=== PATIENT | male | born 1950 | race Caucasian/White ===

== ENCOUNTER 2018-05-05 21:06 | Inpatient (IN) | payer MEDICARE, OTHER ==
[~2018-05-05] VITALS: Ht 177.8 cm; Wt 81.2 kg
[2018-05-05] MEDS ORDERED: ACET500T73 PO (21:34)
[2018-05-05] MEDS ORDERED: CLON0.1T PO (21:34)
[2018-05-05] MEDS ORDERED: FOLI1TAB21 PO (21:34)
[2018-05-05] MEDS ORDERED: INSU100V8 SQ (21:34)
[2018-05-05] MEDS ORDERED: PRAV20TA2 PO (21:34)
[2018-05-05] MEDS ORDERED: DEXT15DR5 OP (21:34)
[2018-05-05] MEDS ORDERED: CAPS42.510 TP (21:34)
[2018-05-05] MEDS ORDERED: BUSP5TAB2 PO (21:34)
[2018-05-05] MEDS ORDERED: TRAZ50TA18 PO (21:34)
[2018-05-05] MEDS ORDERED: SERT100T5 PO (21:34)
[2018-05-05] MEDS ORDERED: FURO-81 PO (21:34)
[2018-05-05] MEDS ORDERED: METF500T5 PO (21:34)
[2018-05-05] MEDS ORDERED: LISI-414 PO (21:34)
[2018-05-05 22:00] VITALS: BP 92/48
[2018-05-05] MEDS ORDERED: LASIX PO PRN (22:00)
[2018-05-05] MEDS ORDERED: LANTUS SQ SCH (22:00)
[2018-05-05] MEDS ORDERED: GLUCOPHAGE PO SCH (22:00)
[2018-05-05] MEDS ORDERED: ARTIFICIAL TEARS BOTH EYES PRN (22:00)
[2018-05-05] MEDS ORDERED: DESYREL PO STA (22:25)
--- NOTE | 2018-05-05 22:25 | NUR ---
Admission 68 year old, single, male [employer] with a reported hx of PTSD and MDD, presents to [facility] as a direct admit from [facility] on involuntary status with papers by a magistrate judge for mental decompensation. The patient was transported via ambulance with no family present. The patient reports his chief complaint is "I have been forgetting a lot". The patient was transported to the [facility] from [facility]. He has had increasing confusion over the past two weeks. He has been found to have left his gas stove on and was found wandering naked outside of his duplex Friday night 05/02/18. He has had recent onset of incontinence over the past two weeks. The patient is likely being evicted from [facility] due to recent onset of disruptive and combative behavior there with administration and peers. The patient presents with symptoms of depression and mental decompensation which is characterized by severe fluctuations in appetite over the past two weeks with unknown change in weight; increased irritability with frequent anger outbursts AEB report that the patient has been combative towards peers, police, and administration from [facility] over the past two weeks; decrease in ADL's AEB disheveled and unkempt appearance; difficulty with sleep which is described as 10 to 12 hours a day, but non-continuous at two to three hours at a time; and isolating to self. The onset was two to three weeks ago and precipitated by onset of confusion. The patient reports aggravating factors as conflict with his son, inability to stay asleep, and being told that he can not visit [place]. The patient is treated through the [facility]. It is unknown who his PCP is. The psychiatric medications the patient is currently prescribed are Buspirone 5mg PO TID PRN Anxiety / Irritability, Sertraline 100mg PO Daily, and Trazodone 50mg PO QHS. The patient reports compliance with medications. The patient reports that he is seen by a psychologist, Dr. Alphonse Newman, through the [facility]. The patient's symptoms have caused functional impairment in the areas of safety, relationships, ADL's, and house which is manifested by forgetting gas stove, wandering naked outside, combative towards peers and police, conflict with son, unkempt appearance and not taking care of self over the past two weeks, and likely eviction from [facility]. The patient is likely to further decompensate if not treated and meets criteria for involuntary status. The patient's urinalysis is unremarkable. UDS is negative. [facility] is sister in-law, Whitney Sol. POA not available at this time.
[2018-05-06 01:23] VITALS: BP 98/48
[2018-05-06] MEDS ORDERED: HALDOL PO PRN (04:00)
[2018-05-06] MEDS ORDERED: ATIVAN IM PRN (04:00)
[2018-05-06] MEDS ORDERED: HALDOL IM PRN (04:00)
[2018-05-06] MEDS ORDERED: ATIVAN PO PRN (04:00)
[2018-05-06 08:15] VITALS: BP_SYST 105; BP_SYST 107; BP_DIAS 42; BP_DIAS 53
--- NOTE | 2018-05-06 08:49 | NUR ---
Tx team Pt was seen by Dr. Cortés via telemed. Received orders to start scheduled Risperdal and Aricept, discussed with pt about use of medications. Pt agreeable with med regimen, has pleasant, cooperative affect. Alert and oriented x 3.
[2018-05-06] MEDS ORDERED: PRAVACHOL PO SCH ×2 (09:00→09:56)
[2018-05-06] MEDS: ZESTRIL PO SCH (09:00)
[2018-05-06] MEDS: RISPERDAL PO SCH ×2 (09:41→21:10)
[2018-05-06] MEDS ORDERED: ZOCOR PO SCH (09:41)
[2018-05-06] MEDS: ZOLOFT PO SCH (09:41)
[2018-05-06] MEDS: FOLIC ACID PO SCH (09:41)
[2018-05-06] MEDS: TYLENOL PO SCH ×2 (09:42→21:10)
[2018-05-06] MEDS: GLUCOPHAGE PO SCH (09:43)
[2018-05-06] MEDS: LANTUS SQ SCH (09:51)
[2018-05-06] MEDS: PRAVACHOL PO SCH (12:00)
--- NOTE | 2018-05-06 13:00 | PSYCH ---
DATE OF SERVICE: 05/06/2018 CHIEF COMPLAINT: "I have not been active myself recently." HISTORY OF PRESENT ILLNESS: The patient is a 68-year-old male who is an involuntary admission to the Behavioral Health Unit at the [facility]. The patient has reportedly had a cognitive decline over the past 2 weeks. His appetite has been up and down. He has reportedly had combative behavior towards administrative staff at [facility] where he is residing. The patient has reportedly had odd and delusional behavior. He has reportedly been going outside naked per reports. He has had increased anger and irritability recently. He denies auditory or visual hallucinations. He is not currently manic or hypomanic. The patient reports having a high anxiety level. He reports having anxiety attacks at times. He does have PTSD symptoms. He gets anxious when watching movies about ____ or having helicopters flying over his head. He is not hypervigilant symptoms. He denied having nightmares at night. Reports that he is sleeping okay at night. He denies current suicidal or homicidal ideation. He does admit to having anger and irritability. He admits to having a decreased memory recently. He does have a history of significant alcohol abuse. He has been clean for the last 35 years. PAST PSYCHIATRIC HISTORY: The patient reports never being hospitalized for psychiatric reasons. He reports attempting suicide one time about 37 years ago. He is followed by mental health at the [facility]. He sees an outpatient therapist and an outpatient psychiatrist. His outpatient psychiatrist is ____. The patient has been on multiple psychotropic medications in the past. He is currently taking Zoloft and trazodone. PAST MEDICAL HISTORY: 1. Diabetes. 2. Hypertension. 3. High cholesterol. 4. Chronic pain issues. ALLERGIES: 1. PENICILLIN. 2. ATORVASTATIN. 3. SIMVASTATIN. 3. TETANUS TOXOID. CURRENT MEDICATIONS: 1. Tylenol 500 mg p.o. b.i.d. 2. Clonidine 0.1 mg p.o. at bedtime. 3. Folic acid 1 mg p.o. daily. 4. Lasix 20 mg p.o. daily p.r.n. shortness of breath. 5. Lantus insulin 70 units daily. 6. Lisinopril 5 mg p.o. daily. 7. Metformin 500 mg p.o. daily. 8. Artificial tears 1 drop in both eyes p.r.n. dry eyes. 9. Pravastatin 20 mg p.o. daily. 10. Zoloft 100 mg p.o. daily. 11. Trazodone 50 mg p.o. at bedtime. FAMILY PSYCHIATRIC HISTORY: The patient reports significant mental health history in his family. He reports both of his grandfathers had mental health problems. He reports a great grandfather had mental health problems. He reports, he had an uncle, who had attempted suicide. SOCIAL HISTORY: The patient currently lives at [facility] in [place], [place]. The patient reports having a significant history of alcohol dependence. He reports being clean and sober for the past 35 years. He denies using illicit drugs. He reports using a can of smokeless tobacco every other day. The patient has been twice in the past. He has been x 7 years. He has a biological son and daughter. He has 2 adopted children. He worked as a trucking contractor in the past. He was a [place] for 2 years in the early 1970s. OBJECTIVE: VITAL SIGNS: Height is 177.8 cm, weight is 90.7 kg. Temperature is 98.4, pulse 79, respirations are 16, blood pressure is 98/48 and O2 saturations 92% on room air. The patient was in no distress during the interview. The patient does report chronic pain issues. REVIEW OF SYSTEMS: CONSTITUTIONAL: No recent changes in weight. No fatigue. No insomnia. NEUROLOGICAL: No tremors. No weakness. No dizziness. PSYCHIATRIC: Positive for anxiety. Mood is positive for irritability. No psychosis. No auditory or visual hallucinations. No zara. GASTROINTESTINAL: No diarrhea, no nausea, no constipation, no vomiting reported. GENITOURINARY: No problems urinating. CARDIOVASCULAR: No chest pain or chest palpitations. RESPIRATORY: No shortness of breath. No wheezing or coughing. SKIN: No problems reported. The patient does bleed easily and has a bruise on his arm. ENDOCRINE: No heat or cold intolerance. EXTREMITIES: No swelling or edema reported. EYES: No recent changes in vision. The patient does have dry eyes. EARS: No recent changes in hearing. Review of systems otherwise negative and reviewed by Dr. Cortés. MENTAL STATUS EXAMINATION: MUSCLE STRENGTH AND TONE: Within normal limits. GAIT AND STATION: Within normal limits. APPEARANCE: Well-groomed and good hygiene. Appears stated age. Casual attire. Normal weight. ATTITUDE AND BEHAVIOR: Cooperative and pleasant during the interview. Good eye contact. No psychomotor activity. MOOD AND AFFECT: Mood is reported as okay. The patient does admit to being irritable at times. Affect is euthymic. ATTENTION AND CONCENTRATION: Normal attention and normal concentration. ORIENTATION: Fully oriented for interview. SPEECH: Regular rate and volume. JUDGMENT AND INSIGHT: Fair judgment and fair insight. THOUGHT PROCESS: Logical and goal directed. LANGUAGE: Estonian. THOUGHT CONTENT: Negative for suicidal or homicidal ideation. Negative for auditory or visual hallucinations. Negative for paranoia. FUND OF KNOWLEDGE: Within normal limits. ASSOCIATIONS: Within normal limits. MEMORY: Recent and remote memory were intact during the interview. The patient does report gradual loss of memory recently. STRENGTHS: Good physical health. Good family support. WEAKNESSES: Loss of memory, chronic mental health issues. ASSESSMENT: Posttraumatic stress disorder; generalized anxiety disorder; delusional disorder; Alzheimer's type dementia with behavior disturbance. PROGNOSIS: Fair to guarded. ESTIMATED LENGTH OF STAY: 7-10 days. TREATMENT PLAN: 1. The patient will be an involuntary admission to the Behavioral Health Unit at the [facility]. The patient will be monitored closely for behaviors. The patient states he will be cooperative with staff. 2. The patient will be started on Risperdal 0.25 mg p.o. b.i.d. for anger and mood problems. The patient will be started on Aricept 5 mg p.o. at bedtime for memory problems. The patient will continue other psychotropic medications at current doses. 3. The patient will see the general medical doctor for general medical health issues. 4. The patient was encouraged to participate in all groups and activities. Dhaval Cortés IV MD DR: /ayo JOB# [id number]
--- NOTE | 2018-05-06 14:21 | CNH ---
DATE OF CONSULTATION: REFERRING PHYSICIAN: Dr. Cortés with Psychiatry. REASON FOR CONSULTATION: Medical management of multiple medical problems. HISTORY OF PRESENT ILLNESS: The patient is a 68-year-old man who was transferred here from the [facility] in [place] with reports of depression. He ambulates with a cane, has a history of heart failure and has some lower extremity edema which is chronic. He states he has had some falls, but none recently. Denies any chest pain or difficulty breathing. He does not smoke. He did present to the ER with concerns for depression. Apparently, he may have some mild dementia also. He is an insulin-dependent diabetic. PAST MEDICAL HISTORY: Includes diabetes mellitus type 2, depression, congestive heart failure, diastolic dysfunction, hypertension, history of hyperlipidemia. PAST SURGICAL HISTORY: He denies any recent surgeries. ALLERGIES: ALLERGIC TO PENICILLIN, STATINS, TETANUS. HOME MEDICATIONS: List includes Tylenol twice a day, BuSpar 5 mg 3 times a day as needed for anxiety. He takes capsaicin topical twice a day for pain, clonidine 0.1 mg at night, folic acid 1 mg daily, Lasix 20 mg daily, Lantus 70 units daily, lisinopril 5 mg daily, metformin 500 mg daily, pravastatin 20 mg daily, Zoloft 100 mg daily, trazodone 50 mg at night. SOCIAL HISTORY: He apparently lives at home. He denies any alcohol, tobacco or illicit drug use history recently. FAMILY HISTORY: Negative for early coronary artery disease or diabetes. REVIEW OF SYSTEMS: CARDIAC: Denies any chest pain, shortness of breath or dyspnea on exertion. PULMONARY: No cough, sputum production or pleuritic chest pain. GASTROINTESTINAL: No nausea, vomiting, diarrhea or constipation. All else negative in 10 point review of system except as in HPI. PHYSICAL EXAMINATION: VITAL SIGNS: Upon arrival, height 177.8 cm, weight 90.72 kilograms. Temperature 98.4, pulse 79, respiratory rate is 18, blood pressure 92/48, O2 saturation 93% on room air. GENERAL: He is alert, in no acute distress at time of exam. HEENT: Pupils equal, round, reactive to light. Sclerae are anicteric. Oropharynx is clear. Mucous membranes are moist. NECK: Supple, no lymphadenopathy. CARDIOVASCULAR: At time of exam was regular rate and rhythm. LUNGS: Clear bilaterally, relatively shallow inspiratory effort. No wheezing. ABDOMEN: Soft. Bowel sounds are present, nontender to palpation. EXTREMITIES: No cyanosis, clubbing. He has chronic lower extremity edema. NEUROLOGIC: Grossly nonfocal. LABORATORY DATA: From outside hospital, CBC: White count 6.4, hemoglobin 12.8, platelets are 50. Differential: 72% neutrophils, 13% lymphocytes, 13% monocytes. TSH 2.25. Sodium 136, potassium 3.4, chloride 101, CO2 is 21, glucose 169, BUN is 18, creatinine 1.1, calcium is 9.0, magnesium 1.9, phosphorus 3.9, total protein 6.1, albumin 3.3, ALT is 43, AST is 80, alkaline phosphatase is 59. EKG is sinus rhythm with first degree AV block. ASSESSMENT AND PLAN: The patient is a 68-year-old man with diabetes mellitus type 2, insulin-dependent; hypertension; hyperlipidemia with evidence that he might have a history of chronic liver disease and alcohol abuse in the past because he does have some thrombocytopenia, has a significantly elevated MCV with a 101.8 MCV. 1. We will continue his cardiovascular medications. He does have a history of hyperlipidemia, but has STATINS listed as an allergy. 2. Continue his diabetic medications, ADA diet. 3. Activity as tolerated with fall precautions. 4. There is evidence of chronic congestive heart failure, diastolic dysfunction, but he is well compensated at this time. We will follow clinically. 5. He does have thrombocytopenia and evidence of possible history of alcohol use and some liver disease. We will follow clinically. Time spent on 05/06/2018 is 45 minutes. Thank you very much for this consult. We will follow with you. Mark Leon MD DR: SAHIL/ayo JOB# [id number]
--- NOTE | 2018-05-06 16:22 | NUR ---
SYMPTOMATOLOGY: PT WAS INVOLUNTARILY COMMITTED INTO THE [facility] FOR BEHAVIORS HE WAS EXHIBITING AT HOME. [facility]ED [facility] AND REQUESTING TO GO TO THE PAVILION BECAUSE HE WAS SCARED HE WAS GETTING DEMENTIA. PT LIVED HOME ALONE AT [facility]. PT WAS EXPERIENCING CONFUSION, BIZARRE BEHAVIOR, INCREASED AGITATION, HIGH ANXIETY. PT WAS FOUND WALKING AROUND OUTSIDE NAKED, DISORIENTED, SHAVED HIS HEAD AND HIS DOGS, PT WAS LEAVING GAS BURNERS ON, AND GETTING AGGRESSIVE AND COMBATIVE TOWARDS STAFF AT [facility]. PT WAS HAVING INCREASED FALLS AND FORGETTING FAMILY AT TIMES. SS TO CONTINUE TO FOLLOW AND MONITOR DISCHARGE PLANNING NEEDS. Addendum: 05/08/18 at 1834 by Astrid NAVA Amended: Links added.
--- NOTE | 2018-05-06 16:32 | NUR ---
MMSE SCORE 21: FINDINGS INDICATE LITTLE TO NO COGNITIVE DEFICITS.
--- NOTE | 2018-05-06 16:44 | NUR ---
GMAS SCORE 06/30: FINDINGS INDICATE MILD DEPRESSION. Addendum: 05/08/18 at 2010 by Astrid Graham LMSW SW Amended: Links added.
--- NOTE | 2018-05-06 17:40 | NUR ---
PIRP P: Alteration in mood, fall risk I: Monitor for changes in usual behavior, provide safe and supportive environment, q15 min monitoring, teach medication regimen, provide task-oriented activities, assess for depression/anxiety, assess for psychotic symptoms, provide 1:1 to encourage expression of feelings, teach appropriate fall prevention techniques R: Pt has had pleasant, cheerful, cooperative affect throughout shift. Has taken medications as ordered, participates in group activities, and interacts appropriately with staff and peers. Denies depression, reports feelings of anxiety with frequent anxiety attacks. States, "I think I'm getting dementia." Denies depression, SI/HI, hallucinations, and paranoia. Has not exhibited threatening or combative behaviors throughout shift. P: Encourage social interaction and reinforce coping skills r/t anxiety.
[2018-05-06 19:25] VITALS: BP 126/59
[2018-05-06] MEDS: CATAPRES PO SCH (21:11)
[2018-05-06] MEDS: ARICEPT PO SCH (21:11)
[2018-05-06] MEDS: DESYREL PO SCH (21:11)
--- NOTE | 2018-05-07 05:49 | NUR ---
-PIRP P: Alteration in mood I: Monitor for changes in usual behavior, provide safe and supportive environment, q15 min monitoring, teach medication regimen, provide task-oriented activities, assess for depression/anxiety, assess for psychotic symptoms, provide 1:1 to encourage expression of feelings, teach appropriate fall prevention techniques R: The patient is pleasant upon approach by staff, but has remained in bed for the entire evening shift and has spent the majority of the shift asleep. He denies that he is suicidal or homicidal ideation and hallucinations. He was medication compliant P: Encourage social interaction and reinforce coping skills r/t anxiety.
[2018-05-07 07:34] VITALS: BP_SYST 109; BP_SYST 148; BP_DIAS 42; BP_DIAS 61
[2018-05-07] MEDS: RISPERDAL PO SCH ×2 (08:39→21:15)
[2018-05-07] MEDS: ZOLOFT PO SCH (08:39)
[2018-05-07] MEDS: FOLIC ACID PO SCH (08:39)
[2018-05-07] MEDS: ZESTRIL PO SCH (08:39)
[2018-05-07] MEDS: LANTUS SQ SCH (08:39)
[2018-05-07] MEDS: GLUCOPHAGE PO SCH (08:39)
[2018-05-07] MEDS: TYLENOL PO SCH ×2 (08:40→21:17)
[2018-05-07] MEDS: PRAVACHOL PO SCH (08:51)
--- NOTE | 2018-05-07 09:54 | NUR ---
Telemed Pt was seen by Kiarra Valentino DNP via telemed. No new orders received @ this time, pt was provided with education regarding medication management.
--- NOTE | 2018-05-07 10:02 | PRM.PN ---
Mood: DENIES DEPRESSION Sleep: SLEPT 9.25 HOURS LAST NIGHT Appetite: GOOD Suidical thoughts: DENIES Homicidal thoughts: DENIES Recent stressors: COGNITIVE DECLINE Family support: POOR Aggressive Behavior: NONE NOTED Ability to Perform ADL'sc: GOOD Psychotic sympstoms: DENIES Manic Symptoms: NONE NOTED Living situation: [facility] FOR THE PAST 7 YEARS. Illicit Drug usec: PAST USE, SOBER SEVERAL YEARS Alcoholo use: NONE Tobacco use: NONE Family,PT,Surgical,&Current HX: (1) Delusional disorder (2) Post traumatic stress disorder (PTSD) Anxity Symptoms: REPORTED ANXIETY 09/10 Anger/Irritablility: DENIES, NONE NOTED Muscle Strength & Tone: WNL Gait & Station: Normal stance/post/gait Appearance: Casual attire, Normal weight, Appears age stated Attitude & Behaviour: Cooperative/Pleasant Mood & Affect: Euthymic/appr/congruent Orientation: Fully oriented per interv Attention/Concentration: Fair attention, Fair concentration Speech: Reg rate/vol/rhyth/prosod Judgement/Insight: Good judgement, Good insight Thought Process: Linear/goal directed Language: Eritrean Thought content/Abnormal/Psych: None/normal Fund of Knowledge: WNL Associations: WNL/Normal Associations Memory (recent and remote): Gross int/not form assess Constitutional: None Neurological: None Psychiatric: None [place] I: DELUSIONAL DISORDER, PTSD [place] II: DEFERRED [place] III: SEE MEDICAL CHART/PMH [place] IV: SAFETY, STRESS OF MENTAL ILLNESS [place] V: 35 Assessment/Plan Assessment/Plan Patient History: Alzheimer's disease Unknown 33 FATHER (Colon cancer, Age 70) Plan Vital Signs Date Time Temp Pulse Resp B/P (MAP) Pulse Ox O2 Delivery O2 Flow Rate FiO2 05/07/18 08:39 148/61 05/07/18 07:34 98.1 77 16 91 Room Air 98.1 Allergies Coded Allergies Type Severity Reaction Last Updated Verified Penicillins Allergy Unknown unknown 05/05/18 Yes atorvastatin Allergy Unknown unknown 05/05/18 Yes simvastatin Allergy Unknown unknown 05/05/18 Yes tetanus toxoid, adsorbed Allergy Unknown unknown 05/05/18 Yes Intake and Output 05/07/18 07:00 Intake Total 2383 ml Balance 2383 ml Intake Oral 2383 ml # Voids 4 THE PATIENT WAS SEEN BY CELIA CUMMINGS VIA TELEMEDICINE EQUIPMENT (SUPPORTED BY [facility]) ALONG WITH THE TREATMENT TEAM. HE HAS BEEN PLEASANT SINCE HE ARRIVED ON THE UNIT. HE IS COMPLIANT WITH HIS MEDICATIONS AND HE DENIES AN PROBLEMS WITH IS MEDICATIONS. HE IS EATING AND SLEEPING WELL. HE IS ALERT AND ORIENTED TIMES 3. HE REPORTS HAVING GOOD DAYTIME ENERGY. HE DENIES SI/HI/AV/VH. HE REPORTED A QUESTIONABLE HISTORY OF NIGHTMARES RELATED TO WAR TYPE TRIGGERS HE DOES FEEL THAT HE TRAZODONE HE TAKES IS HELPFUL. ASSESSMENT: DELUSIONAL DISORDER, PTSD PLAN: 1. CONTINUE BEHAVIORAL HEALTH MANAGEMENT 2. CONTINUE CURRENT MEDICATIONS PRESCRIBED. STAFF AGREEABLE WITH PLAN 3. ALL PATIENT QUESTIONS ANSWERED RELATED TO MEDICATIONS, PLAN OF CARE, AND EXPECTED OUTCOMES. 4. SAFETY PLAN DISCUSSED. CELIA CUMMINGS NP May 07, 2018 10:02
--- NOTE | 2018-05-07 18:01 | NUR ---
PIRP P: Anxiety, fall risk I: Assess reasons for anxiety, reinforce fall prevention techniques, monitor for changes in usual behavior, q15 min monitoring, provide safe and supportive environment, provide task-oriented activities, provide 1:1 to encourage expression of feelings, teach relaxation techniques, give medications as ordered R: Pt has had pleasant, cheerful affect throughout shift. Denies depression, suicidal ideation, and irritability. Rates anxiety @ 1 on 0-10 scale, states, "I'm just glad I'm still alive." Participates in group activities without need for prompting, takes medications as ordered, and participates in own self-care with minimal assist. Reports improvement in energy with medication adjustment. P: Pt reports goal is to have a good day and continue to get meds "straightened out."
[2018-05-07 19:26] VITALS: BP 117/55
[2018-05-07] MEDS: ARICEPT PO SCH (21:15)
[2018-05-07] MEDS: DESYREL PO SCH (21:15)
[2018-05-07] MEDS: CATAPRES PO SCH (21:16)
--- NOTE | 2018-05-08 06:05 | NUR ---
-PIRP P: Alteration in mood I: Monitor for changes in usual behavior, provide safe and supportive environment, q15 min monitoring, teach medication regimen, provide task-oriented activities, assess for depression/anxiety, assess for psychotic symptoms, provide 1:1 to encourage expression of feelings, teach appropriate fall prevention techniques R: The patient is pleasant with a bright affect. He denies depression or anxiety and hallucinations. He remained in the dayroom at the beginning of shift and interacted appropriately with staff and peers. P: Continue with treatment plan and monitor for safety.
[2018-05-08 08:10] VITALS: BP 97/50
[2018-05-08] MEDS: GLUCOPHAGE PO SCH (08:26)
[2018-05-08] MEDS: RISPERDAL PO SCH ×2 (08:27→20:47)
[2018-05-08] MEDS: FOLIC ACID PO SCH (08:27)
[2018-05-08] MEDS: ZOLOFT PO SCH (08:27)
[2018-05-08] MEDS: LANTUS SQ SCH (08:28)
[2018-05-08] MEDS: ZESTRIL PO SCH (08:40)
[2018-05-08] MEDS: TYLENOL PO SCH ×2 (08:41→20:47)
[2018-05-08] MEDS: PRAVACHOL PO SCH (09:00)
--- NOTE | 2018-05-08 10:02 | PRM.PN ---
Mood: STABLE, DENIES DEPRESSIVE SYMPTOMS. Sleep: SLEPT 7.25 HOURS Appetite: GOOD Suidical thoughts: DENIES Homicidal thoughts: DENIES Recent stressors: COGNITIVE DECLINE Family support: GOOD Aggressive Behavior: NONE NOTED Ability to Perform ADL'sc: GOOD Psychotic sympstoms: NONE NOTED Manic Symptoms: NONE NOTED [facility] Illicit Drug usec: SOBER FOR SEVERAL YEARS Alcoholo use: NONE Tobacco use: NONE Family,PT,Surgical,&Current HX: (1) Delusional disorder (2) Post traumatic stress disorder (PTSD) Anxity Symptoms: DENIES Anger/Irritablility: NONE NOTED Muscle Strength & Tone: WNL Gait & Station: WNL Appearance: Casual attire, Appears age stated Attitude & Behaviour: Cooperative/Pleasant Mood & Affect: Euthymic/appr/congruent Orientation: Fully oriented per interv Attention/Concentration: Good attention, Good concentration Judgement/Insight: Good judgement, Good insight Thought Process: Linear/goal directed Language: Uzbek Fund of Knowledge: WNL Associations: WNL/Normal Associations Memory (recent and remote): Gross int/not form assess [place] I: DELUSIONAL DISORDER, PTSD [place] II: DEFERRED [place] III: SEE MEDICAL CHART/PMH [place] IV: SAFETY [place] V: 40 Assessment/Plan Assessment/Plan Patient History: Alzheimer's disease Unknown 33 FATHER (Colon cancer, Age 70) Plan Vital Signs Date Time Temp Pulse Resp B/P (MAP) Pulse Ox O2 Delivery O2 Flow Rate FiO2 05/08/18 08:40 107/50 05/08/18 08:10 98.2 67 15 83 Room Air 98.2 Allergies Coded Allergies Type Severity Reaction Last Updated Verified Penicillins Allergy Unknown unknown 05/05/18 Yes atorvastatin Allergy Unknown unknown 05/05/18 Yes simvastatin Allergy Unknown unknown 05/05/18 Yes tetanus toxoid, adsorbed Allergy Unknown unknown 05/05/18 Yes Intake and Output 05/08/18 07:00 Intake Total 2740 ml Balance 2740 ml Intake Oral 2740 ml # Voids 4 THE PATIENT WAS SEEN BY CELIA CUMMINGS VIA TELEMEDICINE EQUIPMENT (SUPPORTED BY [facility]) ALONG WITH THE TREATMENT TEAM. HE IS DOING WELL, HE HAS NO ACUTE COMPLAINTS. HE IS EATING AND SLEEPING WELL. HE IS COMPLIANT WITH HIS MEDICATIONS AND DENIES ANY SE. HE DENIES SI/HI/AV/VH. HE REPORTS HAVING GOOD ENERGY. ASSESSMENT: DELUSIONAL DISORDER, PTSD PLAN: 1. CONTINUE BEHAVIORAL HEALTH MANAGEMENT 2. CONTINUE CURRENT MEDICATIONS PRESCRIBED. STAFF AGREEABLE WITH PLAN 3. ALL PATIENT QUESTIONS ANSWERED RELATED TO MEDICATIONS, PLAN OF CARE, AND EXPECTED OUTCOMES. 4. SAFETY PLAN DISCUSSED. CELIA CUMMINGS NP May 08, 2018 10:02
--- NOTE | 2018-05-08 18:41 | NUR ---
PIRP P: Alteration in mood I: Assess reasons for depression and anxiety, assess for psychotic symptoms, give clear and simple instructions, redirect with verbalization, provide 1:1 to encourage expression of feelings, provide task-oriented activities, provide safe and supportive environment, give medications as ordered R; Pt has had cheerful, bright affect throughout shift. Initiates interaction with staff and peers, participates in group activities without need for prompting. Has not exhibited bizarre behaviors, is alert and oriented x 3, no psychotic symptoms noted. Cooperative with ADLs. Denies depression, anxiety, SI/HI. P: Pt reports he is feeling "better," voices he would like to contact Another [facility] about living arrangements.
[2018-05-08 20:00] VITALS: BP 104/64
[2018-05-08] MEDS: ARICEPT PO SCH (20:46)
[2018-05-08] MEDS: DESYREL PO SCH (20:47)
[2018-05-08] MEDS: CATAPRES PO SCH (20:47)
--- NOTE | 2018-05-09 05:13 | NUR ---
PIRP- P- ALTERATION IN MOOD I- PROVIDE MEDICATION ORDERED,Q 15 MIN. MONITORING , PROVIDE SAFE AND SUPPORTIVE ENVIRONMENT. R- PT. WAS ORIENTED TIMES THREE. DENIES DEPRESSION AND RATED ANXIETY 1. PT. ATTENDED GROUP AND WATCHED A MOVIE. LAUGHED AT THE FUNNY MOVIE. ATE SNACKS AND TOOK MEDICATION ORDERED. PLEASANT AFFECT. RESTING IN BED WITH EYES CLOSED AT THIS TIME. P- WILL CONTINUE WITH CURRENT TX. PLAN.
--- NOTE | 2018-05-09 05:17 | NUR ---
BEHAVIORS PT. HAS NOT EXHIBITED INAPPROPRIATE BEHAVIORS THIS SHIFT.
--- NOTE | 2018-05-09 07:49 | NUR ---
Blood sugar Patient blood sugar was checked before breakfast. Blood sugar was 40, RN Patricia Angela notified. Gave patient orange juice along with meal, administered 70 Units of Lantus. Blood sugar was rechecked by RN at [phone].
[2018-05-09] MEDS: LANTUS SQ SCH (08:04)
[2018-05-09] MEDS: GLUCOPHAGE PO SCH (08:18)
[2018-05-09] MEDS: FOLIC ACID PO SCH (08:18)
[2018-05-09] MEDS: ZOLOFT PO SCH (08:22)
[2018-05-09] MEDS: TYLENOL PO SCH ×2 (08:22→21:31)
[2018-05-09] MEDS: ZESTRIL PO SCH (08:23)
[2018-05-09] MEDS: RISPERDAL PO SCH ×2 (08:24→21:31)
[2018-05-09 08:39] VITALS: BP 98/47
[2018-05-09] MEDS: PRAVACHOL PO SCH (10:18)
--- NOTE | 2018-05-09 15:20 | NUR ---
TELEMED: PT. SEEN BY Kiarra CORONEL VIA TELEMED. NO NEW ORDERS RECEIVED.
--- NOTE | 2018-05-09 15:23 | PRM.PN ---
Mood: STABLE, DENEIS DEPRESSION Sleep: SLEPT 9 HOURS LAST NIGHT Appetite: GOOD Suidical thoughts: DENIES Homicidal thoughts: DENIES Recent stressors: COGNITIVE DECLINE Family support: GOOD Aggressive Behavior: NONE NOTED Ability to Perform ADL'sc: GOOD Psychotic sympstoms: NONE NOTED Manic Symptoms: NONE NOTED Living situation: [facility] Illicit Drug usec: NONE Alcoholo use: NONE Tobacco use: NONE Family,PT,Surgical,&Current HX: (1) Delusional disorder (2) Post traumatic stress disorder (PTSD) Anxity Symptoms: DENIES Anger/Irritablility: DENIES Muscle Strength & Tone: WNL Gait & Station: WNL Appearance: Casual attire, Normal weight, Appears age stated Attitude & Behaviour: Cooperative/Pleasant Mood & Affect: Euthymic/appr/congruent Orientation: Fully oriented per interv Attention/Concentration: Good attention Speech: Reg rate/vol/rhyth/prosod Judgement/Insight: Good judgement Thought Process: Linear/goal directed Language: Slovenian Fund of Knowledge: WNL Associations: WNL/Normal Associations Memory (recent and remote): Gross int/not form assess Constitutional: None Neurological: None Psychiatric: None [place] I: PTSD [place] II: DEFERRED [place] III: SEE PMH/ MEDICAL CHART [place] IV: COGNITVE DECLINE [place] V: 40 Assessment/Plan Assessment/Plan Patient History: Alzheimer's disease Unknown 33 FATHER (Colon cancer, Age 70) Plan Vital Signs Date Time Temp Pulse Resp B/P (MAP) Pulse Ox O2 Delivery O2 Flow Rate FiO2 05/09/18 08:39 98.3 75 13 98/47 (64) 88 Room Air 98.3 Allergies Coded Allergies Type Severity Reaction Last Updated Verified Penicillins Allergy Unknown unknown 05/05/18 Yes atorvastatin Allergy Unknown unknown 05/05/18 Yes simvastatin Allergy Unknown unknown 05/05/18 Yes tetanus toxoid, adsorbed Allergy Unknown unknown 05/05/18 Yes Intake and Output 05/09/18 07:00 Intake Total 2275 ml Balance 2275 ml Intake Oral 2275 ml # Voids 1 # Bowel Movements 2 THE PATIENT WAS SEEN BY CELIA CUMMINGS VIA TELEMEDICINE EQUIPMENT (SUPPORTED BY [facility]) ALONG WITH THE TREATMENT TEAM. HE DENIES SI/HI/AV/VH. NIGHTMARES ARE CONTROLLED. HE IS SLEEPING AND EATING WELL. HE REPORTS THAT IS GLAD TO BE GETTING THE HELP HE NEEDS. HE IS COMPLIANT WITH HIS MEDICATION AND REPORTS THAT HE IS TOLERATING THEM WELL. MOOD IS STABLE, DENIES ANXIETY AND DEPRESSION AT THIS TIME. ASSESSMENT: DELUSIONAL DISORDER, PTSD PLAN: 1. CONTINUE BEHAVIORAL HEALTH MANAGEMENT 2. CONTINUE CURRENT MEDICATIONS PRESCRIBED. STAFF AGREEABLE WITH PLAN 3. ALL PATIENT QUESTIONS ANSWERED RELATED TO MEDICATIONS, PLAN OF CARE, AND EXPECTED OUTCOMES. 4. SAFETY PLAN DISCUSSED. CELIA CUMMINGS NP May 09, 2018 15:23
--- NOTE | 2018-05-09 16:36 | NUR ---
PIRP: P:ALTERATION IN MOOD, DTO I: MONITOR FOR SAFETY Q 15 MINUTES, PROVIDE MEDS ORDERED. 1:1 ALLOWING PT. TO EXPRESS THOUGHTS AND FEELINGS, PROVIDE QUIET ENVIRONMENT FOR SLEEP. R: PT. IS MONITORED Q 15 MINUTES FOR SAFETY. PT. IS TAKING MEDS ORDERED BY PHYSICIAN, PT. SLEPT 9 HOURS LAST NIGHT. PT. ALERT AND ORIENTED X 3. PT. DENIES ANY DEPRESSION, ANXIETY OR S/I. PT. IS CALM AND COOPERATIVE. P: CONTINUE CURRENT TX
[2018-05-09] MEDS: CATAPRES PO SCH (21:00)
[2018-05-09] MEDS: ARICEPT PO SCH (21:31)
[2018-05-09] MEDS: DESYREL PO SCH (21:31)
[2018-05-09 22:10] VITALS: BP 129/62
--- NOTE | 2018-05-10 02:34 | NUR ---
medication PT.'S BP WAS 124/60 PULSE 65 . NOTIFIED AND STATED TO HOLD THE CLONIDINE TONIGHT.
--- NOTE | 2018-05-10 02:37 | NUR ---
PIRP- P- ALTERATION IN MOOD AND DTO I- PROVIDE MEDICATION ORDERED,Q 15 MIN. MONITORING,PROVIDE SAFE AND SUPPORTIVE ENVIRONMENT AND PROVIDE 1:1 INTERVENTION ALLOWING PT. TO EXPRESS THOUGHTS AND FEELINGS. R- PT. WAS ORIENTED TIMES THREE. DENIED DEPRESSION AND ANXIETY TONIGHT. EXHIBITED PLEASANT AFFECT AND INITIATED INTERACTION. ATE SNACKS. NO INAPPROPRIATE BEHAVIORS NOTED. PT. 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 TOOK MEDICATION ORDERED. MEDICATION EDUCATION PROVIDED AND PT. VOICED UNDERSTANDING. RESTING IN BED WITH EYES CLOSED AT THIS TIME. P- WILL CONTINUE WITH CURRENT TX. PLAN.
[2018-05-10] MEDS: FOLIC ACID PO SCH (08:23)
[2018-05-10] MEDS: GLUCOPHAGE PO SCH (08:23)
[2018-05-10] MEDS: PRAVACHOL PO SCH (08:23)
[2018-05-10] MEDS: RISPERDAL PO SCH ×2 (08:24→21:13)
[2018-05-10] MEDS: ZESTRIL PO SCH (08:26)
[2018-05-10] MEDS: ZOLOFT PO SCH (08:26)
[2018-05-10] MEDS: TYLENOL PO SCH ×2 (08:26→21:15)
[2018-05-10] MEDS: LANTUS SQ SCH (08:31)
--- NOTE | 2018-05-10 11:15 | NUR ---
TELEMED: PT. SEEN BY Kiarra CORONEL VIA TELEMED. NO NEW ORDERS RECEIVED.
--- NOTE | 2018-05-10 11:23 | PRM.PN ---
Mood: STABLE, DENIES DEPRESSION AND ANXIETY Sleep: SLEPT 7.25 HOURS LAST NIGHT Appetite: GOOD Suidical thoughts: DENIES Homicidal thoughts: DENIES Recent stressors: CGONITIVE DECLINE Family support: GOOD Aggressive Behavior: NONE NOTED Ability to Perform ADL'sc: GOOD Psychotic sympstoms: NONE NOTED Manic Symptoms: NONE NOTED Living situation: [facility] Illicit Drug usec: SOBER SEVERAL YEARS Alcoholo use: NONE Tobacco use: NONE Family,PT,Surgical,&Current HX: (1) Delusional disorder (2) Post traumatic stress disorder (PTSD) Anxity Symptoms: " A LITTLE BIT" THINKING ABOUT THE PAST Anger/Irritablility: DENIES Muscle Strength & Tone: WNL Gait & Station: WNL Appearance: Casual attire, Normal weight, Appears age stated Attitude & Behaviour: Cooperative/Pleasant Orientation: Fully oriented per interv Attention/Concentration: Good attention, Good concentration Speech: Reg rate/vol/rhyth/prosod Judgement/Insight: Good judgement, Good insight Thought Process: Linear/goal directed Language: Sri Lankan Thought content/Abnormal/Psych: None/normal Fund of Knowledge: WNL Associations: WNL/Normal Associations Memory (recent and remote): Gross int/not form assess Constitutional: None Neurological: None Psychiatric: None [place] I: DELUSIONAL DISORDER, PTSD [place] II: DEFERRED [place] III: SEE MEDICAL CHART/PMH [place] IV: COGNITIVE DECLINE [place] V: 30 Assessment/Plan Assessment/Plan Patient History: Alzheimer's disease Unknown 33 FATHER (Colon cancer, Age 70) Plan Vital Signs Date Time Temp Pulse Resp B/P (MAP) Pulse Ox O2 Delivery O2 Flow Rate FiO2 05/10/18 08:26 119/67 05/09/18 22:10 98.1 73 18 92 Room Air 98.1 Allergies Coded Allergies Type Severity Reaction Last Updated Verified Penicillins Allergy Unknown unknown 05/05/18 Yes atorvastatin Allergy Unknown unknown 05/05/18 Yes simvastatin Allergy Unknown unknown 05/05/18 Yes tetanus toxoid, adsorbed Allergy Unknown unknown 05/05/18 Yes Intake and Output 05/10/18 07:00 Intake Total 1696 ml Balance 1696 ml Intake Oral 1696 ml # Voids 4 # Bowel Movements 1 THE PATIENT WAS SEEN BY CELIA CUMMINGS VIA TELEMEDICINE EQUIPMENT (SUPPORTED BY [facility]) ALONG WITH THE TREATMENT TEAM. HE REPORTS THAT HE IS DOING WELL. HE IS EATING AND SLEEPING WELL. HE IS PLEASANT AND COMPLIANT WITH HIS MEDICATIONS. HE DENIES ANY SIDE EFFECTS. HE REPORTS THAT HIS ENERGY IS IMPROVING. HE DENIES SI/HI/AV/VH. HE HAS SOME ANXIETY BT DENIES PANIC ATTACKS. ASSESSMENT: DELUSIONAL DISORDER, PTSD PLAN: 1. CONTINUE BEHAVIORAL HEALTH MANAGEMENT 2. CONTINUE CURRENT MEDICATIONS PRESCRIBED. STAFF AGREEABLE WITH PLAN 3. ALL PATIENT QUESTIONS ANSWERED RELATED TO MEDICATIONS, PLAN OF CARE, AND EXPECTED OUTCOMES. 4. SAFETY PLAN DISCUSSED. CELIA CUMMINGS NP May 10, 2018 11:23
[2018-05-10 12:19] VITALS: BP 119/67
--- NOTE | 2018-05-10 13:30 | NUR ---
X-RAY: DR. GARCÍA HERE TO SEE PT. CHEST X-RAY ORDERED.
--- NOTE | 2018-05-10 15:41 | DIREP ---
PROCEDURE:CHEST 2 VIEWS COMPARISON:None. INDICATIONS:fall in the grass with right lateral chest wall pain from last week FINDINGS: LUNGS/PLEURA:There is pulmonary hyperinflation consistent with underlying COPD. No focal consolidation. There is blunting of the posterior costophrenic sulci suggesting small effusions. VASCULATURE:Normal. Unremarkable pulmonary vasculature. CARDIAC:Normal. No cardiac silhouette abnormality or cardiomegaly. MEDIASTINUM:Normal. No visible mass or adenopathy. BONES:Normal. No fracture or visible bony lesion. OTHER:Negative. CONCLUSION:COPD. Small posterior effusions are suspected with blunting of the costophrenic sulci. Dictated by: Evans Greer M.D. on 05/10/2018 at 03:39 PM
--- NOTE | 2018-05-10 17:20 | NUR ---
PIRP: P: ALTERATION IN MOOD I: PROVIDE SAFE AND SUPPORTIVE ENVIRONMENT, MONITOR FOR SAFETY Q 15 MINUTES, PROVIDE MEDICATION ORDERED, PROVIDE QUIET ENVIRONMENT FOR SLEEP, WEAR NON SKID SOCKS' R: PT. HAS A SAFE AND SUPPORTIVE ENVIRONMENT, PT. IS MONITORED Q 15 MINUTES FOR SAFETY, PT. TAKES MEDS ORDERED BY PHYSICIAN. PT. SLEPT 7.25 HOURS LAST NIGHT. PT. WEARS YELLOW NON SKID SOCKS. PT. IS ALERT, ORIENTED X 3. PT. DENIES ANY DEPRESSION, ANXIETY OR S/I. PT. STATES THAT HE IS IN NO HURRY TO GO HOME. WANTS TO MAKE SURE HE WELL BEFORE HE GOES HOME. P: CONTINUE CURRENT TX PLAN
[2018-05-10 19:10] VITALS: BP 128/64
[2018-05-10] MEDS: CATAPRES PO SCH (21:00)
[2018-05-10] MEDS: ARICEPT PO SCH (21:13)
[2018-05-10] MEDS: DESYREL PO SCH (21:13)
--- NOTE | 2018-05-11 04:19 | NUR ---
PIRP- P- ALTERATION IN MOOD I- PROVIDE MEDICATION ORDERED,Q 15 MIN. MONITORING,PROVIDE SAFE AND SUPPORTIVE ENVIRONMENT AND PROVIDE 1:1 INTERVENTION ALLOWING PT. TO EXPRESS THOUGHTS AND FEELINGS. R-PT. ORIENTED TIMES THREE. DENIES DEPRESSION AND ANXIETY. ATTENDED GROUP,ATE SNACKS AND PARTICIPATED IN GROUP ACTIVITIES. INITIATED INTERACTION. PT. 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 HE STATED HE FOUND THEM ON THE SIDE OF THE ROAD AND KEPT THEM UNTIL THEY WERE OLD AND . TOLD HOW HE ENJOYED THEM AND THEY WENT WITH HIM IN THE TRUCK. HE STATED THEY REALLY MEANT A LOT TO HIM. TOOK MEDICATION ORDERED. PT. STATED IT MADE HIM FEEL GOOD WHEN HIS THREE FRIENDS CAME TO SEE HIM TODAY. RESTING IN BED WITH EYES CLOSED AT THIS TIME. P- WILL CONTINUE WITH CURRENT TX. PLAN.
[2018-05-11 07:53] VITALS: BP 116/64
[2018-05-11] MEDS: ZESTRIL PO SCH (08:57)
[2018-05-11] MEDS: GLUCOPHAGE PO SCH (08:57)
[2018-05-11] MEDS: ZOLOFT PO SCH (08:57)
[2018-05-11] MEDS: FOLIC ACID PO SCH (08:57)
[2018-05-11] MEDS: RISPERDAL PO SCH ×2 (08:57→20:19)
[2018-05-11] MEDS: TYLENOL PO SCH ×2 (08:57→20:20)
[2018-05-11] MEDS: PRAVACHOL PO SCH (08:59)
[2018-05-11] MEDS: LANTUS SQ SCH (08:59)
--- NOTE | 2018-05-11 10:02 | PRM.PN ---
Mood: GOOD Sleep: GOOD, SLEPT 8.25 HOURS Appetite: GOOD Suidical thoughts: DENIES Homicidal thoughts: DENIES Recent stressors: COGNITIVE DECLINE Family support: GOOD Aggressive Behavior: NONE NOTED Ability to Perform ADL'sc: GOOD Psychotic sympstoms: NONE NOTED Manic Symptoms: NONE NOTED Living situation: [facility] Illicit Drug usec: SOBER SEVERAL YEARS Alcoholo use: NONE Tobacco use: NONE Family,PT,Surgical,&Current HX: (1) Delusional disorder (2) Post traumatic stress disorder (PTSD) Anxity Symptoms: DENIES Anger/Irritablility: NONE NOTED Muscle Strength & Tone: WNL Gait & Station: WN Appearance: Casual attire, Normal weight, Appears age stated Attitude & Behaviour: Cooperative/Pleasant Mood & Affect: Euthymic/appr/congruent Orientation: Fully oriented per interv Attention/Concentration: Good attention, Good concentration Speech: Reg rate/vol/rhyth/prosod Judgement/Insight: Good judgement, Good insight Thought Process: Linear/goal directed Language: Telugu Thought content/Abnormal/Psych: None/normal Fund of Knowledge: WNL Associations: WNL/Normal Associations Memory (recent and remote): Gross int/not form assess Constitutional: None Neurological: None Psychiatric: None [place] I: DELUSIONAL DISORDER, PTSD [place] II: DEFERRED [place] III: SEE MEDICAL CHART/PMH [place] IV: SAFTETY [place] V: 40 Assessment/Plan Assessment/Plan Patient History: Alzheimer's disease Unknown 33 FATHER (Colon cancer, Age 70) Plan Intake and Output 05/11/18 07:00 Intake Total 2214 ml Balance 2214 ml Intake Oral 2214 ml # Voids 7 # Bowel Movements 1 Vital Signs Date Time Temp Pulse Resp B/P (MAP) Pulse Ox O2 Delivery O2 Flow Rate FiO2 05/11/18 08:57 116/64 05/11/18 07:53 99.0 73 18 90 Room Air 99.0 Allergies Coded Allergies Type Severity Reaction Last Updated Verified Penicillins Allergy Unknown unknown 05/05/18 Yes atorvastatin Allergy Unknown unknown 05/05/18 Yes simvastatin Allergy Unknown unknown 05/05/18 Yes tetanus toxoid, adsorbed Allergy Unknown unknown 05/05/18 Yes THE PATIENT WAS SEEN BY CELIA CUMMINGS VIA TELEMEDICINE EQUIPMENT (SUPPORTED BY [facility]) ALONG WITH THE TREATMENT TEAM. HE IS DOING WELL OVERALL. HE IS EATING AND SLEEPING WELL. HE HAS GOOD ENERGY AND REPORTS TOLERATING HIS MEDICATIONS WELL. HE DENIES DEPRESSIVE AND ANXIOUS SYMPTOMS. HE DENIES SI/HI/AV/ VH. ASSESSMENT: DELUSIONAL DISORDER, PTSD PLAN: 1. CONTINUE BEHAVIORAL HEALTH MANAGEMENT 2. CONTINUE CURRENT MEDICATIONS PRESCRIBED. STAFF AGREEABLE WITH PLAN 3. ALL PATIENT QUESTIONS ANSWERED RELATED TO MEDICATIONS, PLAN OF CARE, AND EXPECTED OUTCOMES. 4. SAFETY PLAN DISCUSSED. CELIA CUMMINGS NP May 11, 2018 10:02
--- NOTE | 2018-05-11 17:21 | NUR ---
PIRP P: Alteration in mood I: Monitor for changes in usual behavior, q15 min monitoring, assess for depression and anxiety, teach coping skills r/t anxiety, teach relaxation techniques, provide safe and supportive environment, provide 1:1 to encourage expression of feelings, provide task-oriented activities R: Pt has had cheerful affect throughout shift. Participates in group activities, takes medications as ordered. Denies depression, rates anxiety @ 1 on 0-10 scale. States, "I just want to make sure that my medications are all straightened out before I go back home." Denies SI/HI, no hallucinations or delusions noted. Has not exhibited threatening or combative behaviors. P: Plans for possible discharge back to Another [facility] on Sunday, May 13, 2018.
[2018-05-11 19:20] VITALS: BP 144/73
[2018-05-11] MEDS: ARICEPT PO SCH (20:19)
[2018-05-11] MEDS: DESYREL PO SCH (20:19)
[2018-05-11] MEDS: CATAPRES PO SCH (20:20)
--- NOTE | 2018-05-12 05:53 | NUR ---
-PIRP P: Alteration in mood I: Monitor for changes in usual behavior, provide safe and supportive environment, q15 min monitoring, teach medication regimen, provide task-oriented activities, assess for depression/anxiety, assess for psychotic symptoms, provide 1:1 to encourage expression of feelings, teach appropriate fall prevention techniques R: The patient is pleasant with a bright affect. He denies depression or anxiety and hallucinations. The patient was observed in dayroom eating snacks and interacting with peers. He is attending to ADL's as he showered and changed clothes without prompting. Medication compliant. Reports plan to move in with daughter or [id number]. P: Continue with treatment plan and monitor for safety.
[2018-05-12 07:14] VITALS: BP 102/51
--- NOTE | 2018-05-12 07:20 | NUR ---
BLOOD SUGAR FSBS 61 PT IS ASYMPTOMATIC WITH NO S/S OF HYPOGLYCEMIA DISTRESS. PROVIDED APPLE JUICE WITH SUGAR. WILL RECHECK SUGAR WITH THE HOUR. LANTUS WILL BE GIVEN WITH BREAKFAST.
[2018-05-12] MEDS: FOLIC ACID PO SCH (07:57)
[2018-05-12] MEDS: ZOLOFT PO SCH (07:58)
[2018-05-12] MEDS: RISPERDAL PO SCH ×2 (07:58→20:47)
[2018-05-12] MEDS: ZESTRIL PO SCH (07:58)
[2018-05-12] MEDS: TYLENOL PO SCH ×2 (07:59→20:48)
[2018-05-12] MEDS: PRAVACHOL PO SCH (07:59)
[2018-05-12] MEDS: GLUCOPHAGE PO SCH (08:00)
[2018-05-12] MEDS: LANTUS SQ SCH (08:01)
--- NOTE | 2018-05-12 09:29 | PRM.PN ---
Mood: STABLE, DENIES DEPRESSION Sleep: SLEPT 8.25 HOURS Appetite: GOOD Suidical thoughts: DENIES Homicidal thoughts: DENIES Recent stressors: INCREASED MENTAL ILLNESS Family support: GOOD Aggressive Behavior: NONE NOTED Ability to Perform ADL'sc: GOOD Psychotic sympstoms: DENIES Manic Symptoms: DENIES Living situation: [facility], BEING EVICTED Illicit Drug usec: SOBER FOR SEVERAL HOURS Alcoholo use: NONE Tobacco use: NONE Family,PT,Surgical,&Current HX: (1) Delusional disorder (2) Post traumatic stress disorder (PTSD) Anxity Symptoms: DENIES Anger/Irritablility: DENIES Muscle Strength & Tone: WNL Gait & Station: WNL Appearance: Well groomed/hygience, Normal weight, Appears age stated Attitude & Behaviour: Cooperative/Pleasant Mood & Affect: Euthymic/appr/congruent Orientation: Fully oriented per interv Attention/Concentration: Good attention, Good concentration Speech: Reg rate/vol/rhyth/prosod Judgement/Insight: Good judgement, Good insight Thought Process: Linear/goal directed Language: Czech Thought content/Abnormal/Psych: None/normal Fund of Knowledge: WNL Associations: WNL/Normal Associations Memory (recent and remote): Gross int/not form assess Constitutional: None Neurological: None Psychiatric: None [place] I: DELUSIONAL DISORDER, PTSD [place] II: DEFERRED [place] III: SEE MEDICAL CHART/PMH [place] IV: SAFETY [place] V: 45 Assessment/Plan Assessment/Plan Patient History: Alzheimer's disease Unknown 33 FATHER (Colon cancer, Age 70) Plan Vital Signs Date Time Temp Pulse Resp B/P (MAP) Pulse Ox O2 Delivery O2 Flow Rate FiO2 05/12/18 07:58 102/51 05/12/18 07:14 98.6 67 18 92 Room Air 98.6 Allergies Coded Allergies Type Severity Reaction Last Updated Verified Penicillins Allergy Unknown unknown 05/05/18 Yes atorvastatin Allergy Unknown unknown 05/05/18 Yes simvastatin Allergy Unknown unknown 05/05/18 Yes tetanus toxoid, adsorbed Allergy Unknown unknown 05/05/18 Yes Intake and Output 05/12/18 07:00 Intake Total 2250 ml Output Total 2 ml Balance 2248 ml Intake Oral 2250 ml Output Urine Total 2 ml # Voids 7 # Bowel Movements 1 THE PATIENT WAS SEEN BY CELIA CUMMINGS VIA TELEMEDICINE EQUIPMENT (SUPPORTED BY [facility]) ALONG WITH THE TREATMENT TEAM. HE FEELS WELL. HE DENIES SI/ HI/AV/VH. HE IS NOT HAVING NIGHTMARES. HE IS EATING AND SLEEPING WELL. HE IS TOLERATING HIS MEDICATIONS WITH GOOD DAYTIME ENERGY. HE IS COOPERATIVE AND PARTICIPATING IN ACTIVITIES. HE HAS NOT REQUIRED AND PRN MEDICATIONS. ASSESSMENT: DELUSIONAL DISORDER, PTSD PLAN: 1. CONTINUE BEHAVIORAL HEALTH MANAGEMENT,HE IS GOING TO SIGN IN VOLUNTARY AND PLAN TO DISCHARGE FRIDAY. . 2. CONTINUE CURRENT MEDICATIONS PRESCRIBED. STAFF AGREEABLE WITH PLAN 3. ALL PATIENT QUESTIONS ANSWERED RELATED TO MEDICATIONS, PLAN OF CARE, AND EXPECTED OUTCOMES. 4. SAFETY PLAN DISCUSSED. CELIA CUMMINGS NP May 12, 2018 09:29
--- NOTE | 2018-05-12 18:07 | NUR ---
PIRP P: Alteration in mood I: Monitor for changes in usual behavior, q15 min monitoring, provide safe and supportive environment, provide task-oriented activities, provide 1:1 to encourage expression of feelings, give medications as ordered, include pt in discharge planning, discuss discharge planning, assess for depression and anxiety R: Pt has had cheerful affect throughout shift. Denies depression, anxiety, SI/HI. Participates in group activities, takes medications as ordered. Initiates interaction with staff and peers. Pt was informed of plans for discharge maybe tomorrow, 05/13/18. Reports, "Now, I don't want to cuellar it. I want to be completely sure I'm ready to go when it's time." Eats majority of meals, participates in ADLs. No hallucinations or delusions noted. P: Pt was seen by vendor representatives @ Another [facility], pt will need to find other placement for living arrangements.
[2018-05-12 20:03] VITALS: BP 104/48
[2018-05-12] MEDS: CATAPRES PO SCH (20:46)
[2018-05-12] MEDS: DESYREL PO SCH (20:47)
[2018-05-12] MEDS: ARICEPT PO SCH (20:47)
--- NOTE | 2018-05-13 04:45 | NUR ---
-PIRP P: Alteration in mood I: Monitor for changes in usual behavior, provide safe and supportive environment, q15 min monitoring, teach medication regimen, provide task-oriented activities, assess for depression/anxiety, assess for psychotic symptoms, provide 1:1 to encourage expression of feelings, teach appropriate fall prevention techniques R: The patient is pleasant with a bright affect. He denies depression or anxiety and hallucinations. The patient was observed in dayroom eating snacks and interacting with peers. He is attending to ADL's and is medication compliant. Reports plan to move in with daughter or [id number], is he will not be able to return to [facility]. P: Continue with treatment plan and monitor for safety.
[2018-05-13 07:30] VITALS: BP 100/55
[2018-05-13] MEDS: FOLIC ACID PO SCH (08:37)
[2018-05-13] MEDS: ZESTRIL PO SCH (08:38)
[2018-05-13] MEDS: ZOLOFT PO SCH (08:38)
[2018-05-13] MEDS: TYLENOL PO SCH ×2 (08:39→20:22)
[2018-05-13] MEDS: GLUCOPHAGE PO SCH (08:40)
[2018-05-13] MEDS: LANTUS SQ SCH (08:48)
--- NOTE | 2018-05-13 09:46 | NUR ---
TELEMEDICINE PT SPOKE WITH DR. DE LA CRUZ. PT DENIES ANY DEPRESSION. STATES THAT HE WILL BE GOING TO LIVE WITH HIS DAUGHTER [place]. HE DOES BELIEVE THAT HE IS AN EX [place] [employer]. DENIES ANY SUICIDAL IDEATION OR WANTING TO HARM OTHERS. NO NEW ORDER RECEIVED AT THIS TIME.
--- NOTE | 2018-05-13 09:47 | PRM.PN ---
Mood: MOOD IS "ALRIGHT", DENIES FEELING DEPRESSED Sleep: SLEEPIGN WELL AT NIGHT Appetite: NORMAL APPETITE Suidical thoughts: NONE REPORTED Homicidal thoughts: NONE REPORTED Recent stressors: STRESS OF MENTAL ILLNESS Family support: LIMITED Aggressive Behavior: NONE REPORTED Ability to Perform ADL'sc: YES Psychotic sympstoms: DELUSIONAL THINKING, DENIES HALLUCINATIONS Manic Symptoms: NONE REPORTED Living situation: LIVES AT ANOTHER [facility] Illicit Drug usec: NONE REPORTED Alcoholo use: NONE REPORTED Tobacco use: NONE REPORTED Anxity Symptoms: MODERATE ANXIETY LEVEL Anger/Irritablility: LIMITED ANGER AND IRRITABILITY Muscle Strength & Tone: WNL Gait & Station: [facility] Appearance: Well groomed/hygience, Casual attire, Normal weight, Appears age stated Attitude & Behaviour: Cooperative/Pleasant, Good eye contact Mood & Affect: Euthymic/appr/congruent, Iabile Orientation: Fully oriented per interv Attention/Concentration: Fair attention, Fair concentration Speech: Reg rate/vol/rhyth/prosod Judgement/Insight: Fair judgement, Fair insight Thought Process: Linear/goal directed Language: Emirati Thought content/Abnormal/Psych: Delusions Fund of Knowledge: WNL Associations: WNL/Normal Associations Memory (recent and remote): Gross int/not form assess Constitutional: None Neurological: None Psychiatric: Depressed, Anxious, Psychosis [place] I: DELUSIONAL DISORDER, PTSD, DEPRESSION, DEMENTIA [place] II: DEFERRED [place] III: REFER TO PMH/MEDICAL CHART [place] IV: STRESS OF MENTAL ILLNESS [place] V: GAF=30 Assessment/Plan Assessment/Plan Assessment/Plan Vital Signs Date Time Temp Pulse Resp B/P (MAP) Pulse Ox O2 Delivery O2 Flow Rate FiO2 05/13/18 08:38 100/55 05/13/18 07:30 98.0 76 18 94 Room Air 98.0 Allergies Coded Allergies Penicillins (Verified Allergy, Unknown, unknown, 05/05/18) atorvastatin (Verified Allergy, Unknown, unknown, 05/05/18) simvastatin (Verified Allergy, Unknown, unknown, 05/05/18) tetanus toxoid, adsorbed (Verified Allergy, Unknown, unknown, 05/05/18) I & O 05/05/18 23:06 Thru 05/13/18 09:25 Intake Total 31617 ml Output Total 2 ml Balance 34348 ml THE PATIENT WAS SEEN BY DR. DE LA CRUZ VIA TELEMEDICINE EQUIPMENT ALONG WITH THE TREATMENT TEAM. THE PATIENT WAS LIVING AT ANOTHER [facility]. THE PATIENT HAS NOT BEEN CARING FOR HIMSELF PROPERLY. THE PATIENT HAS MEMORY PROBLEMS. THE PATIENT IS A VOLUNTARY ADMISSION. THE PATIENT HAS BEEN IN AND OUT OF NURSING HOME. THE PATIENT HAS BEEN IN THE INPATIENT PAVILION MULTIPLE TIMES IN THE PAST. THE PATIENT SLEPT 8.25 HOURS LAST NIGHT. THE PATIENT HAS A NORMAL APPETITE. THE PATIENT HAS DELUSIONAL THINKING. THE PATIENT HAS THOUGHT THAT HE WAS A [place] RANG[place] IN THE PAST. ASSESSMENT: DELUSIONAL DISORDER; ALZHEIMER'S DEMENTIA, MAJOR DEPRESSIVE DISORDER WITH PSYCHOSIS; PTSD PLAN: 1) CONTINUE BEHAVIORAL HEALTH MANAGEMENT. 2) INCREASE RISPERDAL TO 0.5MG PO BID. CONTINUE OTHER CURRENT MEDICATIONS. STAFF AGREEABLE WITH THE PLAN. SUPPORTIVE THERAPY GIVEN. THE PATIENT DENIES SI OR HI. SAFETY PLANS WERE DISCUSSED. 16 MINUTES SPENT IN SUPPORTIVE THERAPY AND INSIGHT ORIENTED THERAPY. Problems: (1) Delusional disorder Status: Acute ICD Code: F22 - Delusional disorders SNOMED: 16560165 (2) Post traumatic stress disorder (PTSD) Status: Chronic ICD Code: F43.10 - Post-traumatic stress disorder, unspecified SNOMED: 53370682 Patient History: Alzheimer's disease Unknown 33 FATHER (Colon cancer, Age 72) LIZA DE LA CRUZ IV, MD May 13, 2018 09:47
[2018-05-13] MEDS: PRAVACHOL PO SCH (09:50)
--- NOTE | 2018-05-13 17:14 | NUR ---
PIRP P: Alteration in mood I: Monitor for changes in usual behavior, q15 min monitoring, provide safe and supportive environment, provide task-oriented activities, provide 1:1 to encourage expression of feelings, give medications as ordered, include pt in discharge planning, discuss discharge planning, assess for depression and anxiety R: Pt denies any SI. Mood has been bright and cheerful. Stated during treatment team, " I am an ex [place] r[place]". Denies any hallucinations. Risperdal increased per Dr Cortés. No depression nor anxiety noted. Plans are to go live with daughter in law after discharge P: Continue to encourage expression of feelings.
[2018-05-13 19:37] VITALS: BP 117/61
[2018-05-13] MEDS: CATAPRES PO SCH (19:51)
[2018-05-13] MEDS: DESYREL PO SCH (20:22)
[2018-05-13] MEDS: ARICEPT PO SCH (20:22)
[2018-05-13] MEDS: RISPERDAL PO SCH (20:22)
--- NOTE | 2018-05-14 05:03 | NUR ---
-PIRP P: Alteration in mood I: Monitor for changes in usual behavior, provide safe and supportive environment, q15 min monitoring, teach medication regimen, provide task-oriented activities, assess for depression/anxiety, assess for psychotic symptoms, provide 1:1 to encourage expression of feelings, teach appropriate fall prevention techniques R: The patient is pleasant with a bright affect. He denies depression or anxiety and hallucinations. The patient was observed in dayroom eating snacks and interacting with peers. He is attending to ADL's and is medication compliant. No complaints at this time. P: Continue with treatment plan and monitor for safety.
[2018-05-14 08:46] VITALS: BP 117/63
[2018-05-14] MEDS: FOLIC ACID PO SCH (08:50)
[2018-05-14] MEDS: GLUCOPHAGE PO SCH (08:51)
[2018-05-14] MEDS: RISPERDAL PO SCH ×2 (08:51→20:25)
[2018-05-14] MEDS: PRAVACHOL PO SCH (08:51)
[2018-05-14] MEDS: ZESTRIL PO SCH (08:52)
[2018-05-14] MEDS: TYLENOL PO SCH ×2 (08:52→20:26)
[2018-05-14] MEDS: ZOLOFT PO SCH (08:52)
[2018-05-14] MEDS: LANTUS SQ SCH (08:58)
--- NOTE | 2018-05-14 09:44 | PRM.PN ---
Mood: STABLE, DENIES BEING DEPRESSED Sleep: SLEPT 8 HOURS Appetite: GOOD Suidical thoughts: DENIES Homicidal thoughts: DENIES Recent stressors: COGNITIVE DECLINE Family support: GOOD Aggressive Behavior: NONE NOTED Ability to Perform ADL'sc: FAIR TO GOOD Psychotic sympstoms: DELUSIONAL ABOUT BEING A [place] RANGER Manic Symptoms: NONE NOTED Living situation: PLANNING TO GO LIVE WITH NITISHER IN LAW AND [place]AND[place] Illicit Drug usec: SOBER FOR MANY YEARS Alcoholo use: NONE Tobacco use: NONE Family,PT,Surgical,&Current HX: (1) Delusional disorder (2) Post traumatic stress disorder (PTSD) Anxity Symptoms: DENIES Anger/Irritablility: NONE NOTED Gait & Station: Normal stance/post/gait Appearance: Casual attire, Normal weight, Appears age stated Attitude & Behaviour: Cooperative/Pleasant Mood & Affect: Euthymic/appr/congruent Orientation: Fully oriented per interv Attention/Concentration: Good attention, Good concentration Speech: Reg rate/vol/rhyth/prosod Judgement/Insight: Fair judgement, Fair insight Thought Process: Linear/goal directed Language: Afghan Thought content/Abnormal/Psych: Delusions Fund of Knowledge: WNL Associations: WNL/Normal Associations Memory (recent and remote): Gross int/not form assess Constitutional: None Neurological: None Psychiatric: Psychosis (HE BELIEVES HE IS A FORMER [place] RANGER) [place] I: DELUSIONAL DISORDER, PTSD [place] II: DEFERRED [place] III: SEE MEDICAL CHART/PMH [place] IV: SAFETY/HOUSING [place] V: 40 Assessment/Plan Assessment/Plan Patient History: Alzheimer's disease Unknown 33 FATHER (Colon cancer, Age 72) Plan Vital Signs Date Time Temp Pulse Resp B/P (MAP) Pulse Ox O2 Delivery O2 Flow Rate FiO2 05/14/18 08:53 117/63 05/14/18 08:46 98.7 72 13 92 Room Air 98.7 Allergies Coded Allergies Type Severity Reaction Last Updated Verified Penicillins Allergy Unknown unknown 05/05/18 Yes atorvastatin Allergy Unknown unknown 05/05/18 Yes simvastatin Allergy Unknown unknown 05/05/18 Yes tetanus toxoid, adsorbed Allergy Unknown unknown 05/05/18 Yes Intake and Output 05/14/18 07:00 Intake Total 1746 ml Balance 1746 ml Intake Oral 1746 ml # Voids 4 # Bowel Movements 1 THE PATIENT WAS SEEN BY CELIA CUMMINGS VIA TELEMEDICINE EQUIPMENT (SUPPORTED BY [facility]) ALONG WITH THE TREATMENT TEAM. HE CONTINUES TO THINK HE IS AN EX- [place] RANG[place]. HE IS EATING AND SLEEPING WELL. HE DENIES SI/HI/AV/VH AT THIS TIME. HE IS TOLERATING HIS MEDICATIONS AND REPORTS SLEEPING WELL. APPETITE IS STABLE. HE HAS NO ACUTE COMPLAINTS. ASSESSMENT: DELUSIONAL DISORDER, PTSD PLAN: 1. CONTINUE BEHAVIORAL HEALTH MANAGEMENT 2. CONTINUE CURRENT MEDICATIONS PRESCRIBED. STAFF AGREEABLE WITH PLAN 3. ALL PATIENT QUESTIONS ANSWERED RELATED TO MEDICATIONS, PLAN OF CARE, AND EXPECTED OUTCOMES. 4. SAFETY PLAN DISCUSSED. CELIA CUMMINGS NP May 14, 2018 09:44
--- NOTE | 2018-05-14 09:49 | NUR ---
TELEMEDICINE PT SPOKE WITH DR. CUMMINGS. MOOD IS PLEASANT AND STATES NO ANXIETY. PT STATES THAT HE IS AN EX [place] RANG[place], AND HAS DOCUMENTS TO SHOW. PLANS AFTER DISCHARGE IS TO LIVE DAUGHTER IN LAW. NO NEW ORDERS RECEIVED AT THIS TIME
[2018-05-14 19:45] VITALS: BP 111/62
[2018-05-14] MEDS: ARICEPT PO SCH (20:25)
[2018-05-14] MEDS: DESYREL PO SCH (20:25)
[2018-05-14] MEDS: CATAPRES PO SCH (20:28)
--- NOTE | 2018-05-15 05:33 | NUR ---
PIRP- P- ALTERATION IN MOOD I-PROVIDE MEDICATION ORDERED,Q 15 MIN. MONITORING,PROVIDE SAFE AND SUPPORTIVE ENVIRONMENT. R- ORIENTED TIMES THREE,DENIES DEPRESSION AND ANXIETY. ATTENDED GROUP AND PARTICIPATED IN ACTIVITIES. PLEASANT AFFECT. TOOK MEDICATION ORDERED. RESTING IN BED WITH EYES CLOSED AT THIS TIME. P- WILL CONTINUE WITH CURRENT [place]. PLAN.
[2018-05-15 08:21] VITALS: BP 127/66
[2018-05-15] MEDS: RISPERDAL PO SCH ×2 (08:30→20:26)
[2018-05-15] MEDS: TYLENOL PO SCH ×2 (08:30→20:27)
[2018-05-15] MEDS: GLUCOPHAGE PO SCH (08:30)
[2018-05-15] MEDS: ZOLOFT PO SCH (08:31)
[2018-05-15] MEDS: FOLIC ACID PO SCH (08:31)
[2018-05-15] MEDS: ZESTRIL PO SCH (08:31)
[2018-05-15] MEDS: PRAVACHOL PO SCH (08:31)
[2018-05-15] MEDS: LANTUS SQ SCH (08:34)
--- NOTE | 2018-05-15 10:28 | PRM.PN ---
Mood: STABLE, DENIES DEPRESSION. Sleep: SLEPT Appetite: GOOD Suidical thoughts: DENIES Homicidal thoughts: DENIES Recent stressors: INCREASED MENTAL ILLNESS Family support: GOOD Aggressive Behavior: NONE Ability to Perform ADL'sc: GOOD Psychotic sympstoms: NONE NOTED Manic Symptoms: NONE NOTED Living situation: SEEKING PLACEMENT WITH FRIENDS OR FAMILY Illicit Drug usec: SOBER FOR SEVERAL YEARS Alcoholo use: NONE Tobacco use: NONE Family,PT,Surgical,&Current HX: (1) Post traumatic stress disorder (PTSD) (2) Delusional disorder Anxity Symptoms: DENIES Anger/Irritablility: DENIES Muscle Strength & Tone: WNL Gait & Station: WN Appearance: Casual attire, Normal weight, Appears age stated Attitude & Behaviour: Cooperative/Pleasant, Good eye contact Mood & Affect: Euthymic/appr/congruent Orientation: Fully oriented per interv Attention/Concentration: Good concentration Speech: Reg rate/vol/rhyth/prosod Judgement/Insight: Good judgement, Good insight Thought Process: Linear/goal directed Language: Nepali Thought content/Abnormal/Psych: Delusions (DELUIONS OF BEING A [place] RANGER) Fund of Knowledge: WNL Associations: WNL/Normal Associations Memory (recent and remote): Gross int/not form assess Constitutional: None Neurological: None Psychiatric: None [place] I: DELUSIONAL DISORDER, PTSD [place] II: DEFERRED [place] III: SEE MEDICAL CHART/ PMH [place] IV: HOUSING/SAFETY [place] V: 45 Assessment/Plan Assessment/Plan Patient History: Alzheimer's disease Unknown 33 FATHER (Colon cancer, Age 72) Plan Intake and Output 05/15/18 07:00 Intake Total 1794 ml Balance 1794 ml Intake Oral 1794 ml # Voids 11 # Bowel Movements 1 Vital Signs Date Time Temp Pulse Resp B/P (MAP) Pulse Ox O2 Delivery O2 Flow Rate FiO2 05/15/18 08:31 127/66 05/15/18 08:21 98.3 81 13 95 Room Air 98.3 Allergies Coded Allergies Type Severity Reaction Last Updated Verified Penicillins Allergy Unknown unknown 05/05/18 Yes atorvastatin Allergy Unknown unknown 05/05/18 Yes simvastatin Allergy Unknown unknown 05/05/18 Yes tetanus toxoid, adsorbed Allergy Unknown unknown 05/05/18 Yes THE PATIENT WAS SEEN BY CELIA CUMMINGS VIA TELEMEDICINE EQUIPMENT ([facility]ED [facility]) ALONG WITH THE TREATMENT TEAM. HE REPORTS THAT HE IS DOING WELL. 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 HE DENIES DEPRESSIVE AND ANXIOUS SYMPTOMS. HE IS TOLERATING HIS MEDICATION. HE DENIES SI/HI/AV/VH. HE IS COOPERATIVE AND PLEASANT AND DENIES ANY PROBLEMS WITH IS MEDICATIONS. ASSESSMENT: DELUSIONAL DISORDER, PTSD PLAN: 1. CONTINUE BEHAVIORAL HEALTH MANAGEMENT. PLAN FOR DISCHARGE TO HOME WITH FAMILY ON FRIDAY. 2. CONTINUE CURRENT MEDICATIONS PRESCRIBED. STAFF AGREEABLE WITH PLAN 3. ALL PATIENT QUESTIONS ANSWERED RELATED TO MEDICATIONS, PLAN OF CARE, AND EXPECTED OUTCOMES. 4. SAFETY PLAN DISCUSSED. CELIA CUMMINGS NP May 15, 2018 10:28
--- NOTE | 2018-05-15 15:41 | NUR ---
PIRP: P: ALTERATION OF MOOD. DTO. FALL RISK I: Provide medications as ordered by physician. Encourage attendance and participation of all groups. Provide 1:1 intervention to allow patient to voice feelings and concerns.Observe and report changes in usual behavior that may indicate risk of injury to self and others. Patient to wear nonskid socks for prevention of falling. R: Patient has taken all medications as ordered. He andujar participated in groups and has not been aggressive. He has remained free from falls. P: Continue current plan of care. Possible discharge on Friday.
[2018-05-15] MEDS: ARICEPT PO SCH (20:27)
[2018-05-15] MEDS: DESYREL PO SCH (20:27)
[2018-05-15] MEDS: CATAPRES PO SCH (20:28)
[2018-05-16 01:04] VITALS: BP 132/66
--- NOTE | 2018-05-16 04:00 | NUR ---
PIRP- P- ALTERED MOOD AND DTO I- PROVIDE SAFE AND SUPPORTIVE ENVIRONMENT,Q 15 MIN. MONITORING, PROVIDE MEDICATION ORDERED.PROVIDE 1:1 INTERVENTION ALLOWING PT. TO EXPRESS THOUGHTS AND FEELINGS. R- PT. ORIENTED TIMES THREE. DENIES DEPRESSION AND ANXIETY. PLEASANT AFFECT. ATTENDED GROUP AND ATE SNACKS. INITIATED INTERACTION.PARTICIPATED IN GROUP ACTIVITIES.HAS EXHIBITED APPROPRIATE BEHAVIORS.TOOK MEDICATION ORDERED. RESTING IN BED WITH EYES CLOSED AT THIS TIME. P- WILL CONTINUE WITH CURRENT TX. PLAN.
[2018-05-16 08:14] VITALS: BP 108/66
--- NOTE | 2018-05-16 08:48 | NUR ---
Telemed Pt was seen by Kiarra Valentino, ROXANE, DISTRICT COMMERCIAL SUPERINTENDENT via telemed. No new orders received @ this time. Plans for pt to discharge tomorrow, 05/17/18, back to [facility].
--- NOTE | 2018-05-16 08:55 | PRM.PN ---
Mood: STABLE, DENIES DEPRESSION Sleep: SLEPT 8 HOURS Appetite: GOOD Suidical thoughts: DENIES Homicidal thoughts: DENIES Recent stressors: INCREASED MENTAL ILLNESS Family support: GOOD Aggressive Behavior: NONE NOTED Ability to Perform ADL'sc: GOOD Psychotic sympstoms: PREVIOUSLY DELUSIONAL ABOUT BEING A [place] RANG[place] Manic Symptoms: NONE NOTED Living situation: ALONE Illicit Drug usec: SOBER FOR YEARS Alcoholo use: NONE Tobacco use: NONE Family,PT,Surgical,&Current HX: (1) Delusional disorder (2) Post traumatic stress disorder (PTSD) Anxity Symptoms: DENIES Anger/Irritablility: NONE NOTED Muscle Strength & Tone: WNL Gait & Station: Normal stance/post/gait Appearance: Casual attire, Normal weight Attitude & Behaviour: Cooperative/Pleasant Mood & Affect: Euthymic/appr/congruent Orientation: Fully oriented per interv Attention/Concentration: Good attention Speech: Reg rate/vol/rhyth/prosod Judgement/Insight: Good judgement, Good insight Thought Process: Linear/goal directed Language: Greek Thought content/Abnormal/Psych: None/normal Fund of Knowledge: WNL Memory (recent and remote): Gross int/not form assess Constitutional: None Neurological: None Psychiatric: None [place] I: DELUSIONAL DISORDER, PTSD [place] II: DEFERRED [place] III: SEE MEDICAL CHART/PMH [place] IV: HOUSING /SAFETY [place] V: 45 Assessment/Plan Assessment/Plan Patient History: Alzheimer's disease Unknown 33 FATHER (Colon cancer, Age 72) Plan Vital Signs Date Time Temp Pulse Resp B/P (MAP) Pulse Ox O2 Delivery O2 Flow Rate FiO2 05/16/18 08:14 98.3 79 18 108/66 (80) 93 Room Air 98.3 Allergies Coded Allergies Type Severity Reaction Last Updated Verified Penicillins Allergy Unknown unknown 05/05/18 Yes atorvastatin Allergy Unknown unknown 05/05/18 Yes simvastatin Allergy Unknown unknown 05/05/18 Yes tetanus toxoid, adsorbed Allergy Unknown unknown 05/05/18 Yes Intake and Output 05/16/18 07:00 Intake Total 2202 ml Balance 2202 ml Intake Oral 2202 ml # Voids 10 # Bowel Movements 1 THE PATIENT WAS SEEN BY CELIA CUMMINGS VIA TELEMEDICINE EQUIPMENT ([facility]) ALONG WITH THE TREATMENT TEAM. HE REPORTS THAT HE IS DOING WELL OVERALL HE HAS NO ACUTE COMPLAINTS. HE IS EATING AND SLEEPING WELL. HE IS COOPERATIVE AND TAKING HIS MEDICATIONS PRESCRIBED. HE REPORTS THAT HE IS TOLERATING HIS MEDICATIONS WELL. HE DENIES SI/HI/AV/VH. HE DENIES ANY NIGHTMARES OR FLASHBACKS AT THIS TIME. ASSESSMENT: DELUSIONAL DISORDER, PTSD PLAN: 1. CONTINUE BEHAVIORAL HEALTH MANAGEMENT. PLAN FOR DISCHARGE TOMORROW. 2. CONTINUE CURRENT MEDICATIONS PRESCRIBED. STAFF AGREEABLE WITH PLAN 3. ALL PATIENT QUESTIONS ANSWERED RELATED TO MEDICATIONS, PLAN OF CARE, AND EXPECTED OUTCOMES. 4. SAFETY PLAN DISCUSSED. CELIA CUMMINGS NP May 16, 2018 08:55
[2018-05-16] MEDS: LANTUS SQ SCH (09:00)
[2018-05-16] MEDS: ZESTRIL PO SCH (09:00)
[2018-05-16] MEDS: FOLIC ACID PO SCH (09:13)
[2018-05-16] MEDS: RISPERDAL PO SCH ×2 (09:13→20:31)
[2018-05-16] MEDS: TYLENOL PO SCH ×2 (09:13→20:32)
[2018-05-16] MEDS: ZOLOFT PO SCH (09:13)
[2018-05-16] MEDS: GLUCOPHAGE PO SCH (09:13)
[2018-05-16] MEDS: PRAVACHOL PO SCH (09:14)
--- NOTE | 2018-05-16 17:20 | NUR ---
PIRP P: Alteration in mood I: Monitor for changes in usual behavior, q15 min monitoring, provide safe and supportive environment, provide task-oriented activities, give medications as ordered, teach discharge planning, assess for depression and anxiety, provide 1:1 to encourage expression of feelings R: Pt has had cheerful affect throughout shift. Denies depression, anxiety, SI/HI. No hallucinations or delusions noted. Pt reports his energy is "good and his sleep is "good." Participates in group activities, takes medications as ordered. Initiates interaction with staff and peers. P: Pt reports his sponsor, Jovan, will be calling the unit tomorrow, 05/17/18, to call with pick-up time.
[2018-05-16 19:30] VITALS: BP 131/64
[2018-05-16] MEDS: DESYREL PO SCH (20:32)
[2018-05-16] MEDS: CATAPRES PO SCH (20:32)
[2018-05-16] MEDS: ARICEPT PO SCH (20:32)
--- NOTE | 2018-05-16 21:00 | NUR ---
medications clonidine 0.1mg held this HS per RN DT blood pressure 131/61
--- NOTE | 2018-05-17 05:10 | NUR ---
PIRP: P: ALTERATION IN MOOD, FALL ISK I: PROVIDE SADE AND SUPPORTIVE ENVIRONMENT, MONITOR PTM Q 15 MINUTES FOR SAFETY, PROVIDE MEDS ORDERED BY PHYSICIAN, PROVIDE 1:1 TO ALLOW PT TO EXPRESS THOUGHTS AND FEELINGS, PROVIDE QUIET ENVIRONMENT FOR SLEEP, WEAR YELLOW NON SKID SOCKS. R: PT, IS PROVIDED A SAFE AN SUPPORTIVE ENVIRONMENT, PT, IS MONITORED Q 15 MINUTES FOR SAFETY, PT. IS TAKING MEDS ORDERED, PT. HAS 1:1 TO EXPRESS THOUGHTS AND FEELINGS, PT, HAS WORE YELLOW NON SKID SOCKS, PT. IS ALERT AND ORIENTED X 3. PT. DENIES ANY DEPRESSION, ANXIETY, S/I AND HALLUCINATIONS. PT. STATES HE IS READY TO GO HOME P: CONTINUE CURRENT TX PLAN
[2018-05-17 07:30] VITALS: BP 117/65
--- NOTE | 2018-05-17 09:12 | PRM.PN ---
Mood: STABLE, DENIES DEPRESSIVE SYMPTOMS Sleep: SLEPT 7.5 HOURS LAST NIGHT Appetite: GOOD Suidical thoughts: DENIES Homicidal thoughts: DENIES Recent stressors: INCREASED MENTAL ILLNESS Family support: GOOD Aggressive Behavior: NONE NOTED Ability to Perform ADL'sc: GOOD Psychotic sympstoms: PREVIOUS DELUSIONAL THOUGHTS Manic Symptoms: DENIES Living situation: MOVING IN WITH FAMILY ON DISCHARGE Illicit Drug usec: SOBER FOR SEVERAL YEARS Alcoholo use: NONE Tobacco use: NONE Family,PT,Surgical,&Current HX: (1) Delusional disorder (2) Post traumatic stress disorder (PTSD) Anxity Symptoms: DENIES Anger/Irritablility: NONE NOTED Muscle Strength & Tone: WNL Gait & Station: Normal stance/post/gait (AMBULATES WITH A CANE) Appearance: Casual attire, Normal weight, Appears age stated Attitude & Behaviour: Cooperative/Pleasant Mood & Affect: Euthymic/appr/congruent Orientation: Fully oriented per interv Attention/Concentration: Good attention, Good concentration Judgement/Insight: Fair judgement, Fair insight Thought Process: Linear/goal directed Language: Albanian Thought content/Abnormal/Psych: None/normal Fund of Knowledge: WNL Associations: WNL/Normal Associations Memory (recent and remote): Gross int/not form assess Constitutional: None Neurological: None Psychiatric: None [place] I: DELUSIONAL DISORDER, PTSD [place] II: DEFERRED [place] III: SEE MEDICAL CHART/PMH [place] IV: HOUSING/SAFETY [place] V: 50 Assessment/Plan Assessment/Plan Patient History: Alzheimer's disease Unknown 33 FATHER (Colon cancer, Age 72) Plan Vital Signs Date Time Temp Pulse Resp B/P (MAP) Pulse Ox O2 Delivery O2 Flow Rate FiO2 05/17/18 07:30 98.0 77 18 117/65 (82) 95 Room Air 98.0 Allergies Coded Allergies Type Severity Reaction Last Updated Verified Penicillins Allergy Unknown unknown 05/05/18 Yes atorvastatin Allergy Unknown unknown 05/05/18 Yes simvastatin Allergy Unknown unknown 05/05/18 Yes tetanus toxoid, adsorbed Allergy Unknown unknown 05/05/18 Yes Intake and Output 05/17/18 07:00 Intake Total 3364 ml Balance 3364 ml Intake Oral 3364 ml # Voids 1 # Bowel Movements 2 THE PATIENT WAS SEEN BY CELIA CUMMINGS VIA TELEMEDICINE EQUIPMENT (SUPPORTED BY [facility]) ALONG WITH THE TREATMENT TEAM. HE IS DOING WELL. HE HAS NO ACUTE COMPLAINTS. HE IS EATING AND SLEEPING WELL. HE REPORTS NO DEPRESSION OR ANXIETY. HE DENIES SI/HI/AV/VH. HE IS TOLERATING HIS MEDICATIONS PRESCRIBED. THE PLAN IS FOR HIM TO BE PICKED UP BY HIS SPONSEE TO STAY WITH HIM. ASSESSMENT: DELUSIONAL DISORDER,PTSD, PLAN: 1. DISCHARGE TODAY. HE PLANS TO STAY WITH HIS SPONSEE. 2. CONTINUE CURRENT MEDICATIONS PRESCRIBED. STAFF AGREEABLE WITH PLAN 3. ALL PATIENT QUESTIONS ANSWERED RELATED TO MEDICATIONS, PLAN OF CARE, AND EXPECTED OUTCOMES. 4. SAFETY PLAN DISCUSSED. CELIA CUMMINGS NP May 17, 2018 09:12
[2018-05-17] MEDS: ZOLOFT PO SCH (09:33)
[2018-05-17] MEDS: FOLIC ACID PO SCH (09:33)
[2018-05-17] MEDS: GLUCOPHAGE PO SCH (09:34)
[2018-05-17] MEDS: RISPERDAL PO SCH (09:34)
[2018-05-17] MEDS: LANTUS SQ SCH (09:34)
[2018-05-17] MEDS: TYLENOL PO SCH (09:34)
[2018-05-17] MEDS: PRAVACHOL PO SCH (09:34)
[2018-05-17] MEDS: ZESTRIL PO SCH (09:34)
--- NOTE | 2018-05-17 12:00 | NUR ---
Pics Discharge wound pics obtained and placed in chart by Evelia Loaiza LVN. Addendum: 05/17/18 at 1501 by YULY Tomlinson RN Amended: Links added.
--- NOTE | 2018-05-17 13:30 | NUR ---
Discharge Discharge education and information provided to pt and pt's sponsee, Jovan. Given education regarding psych meds, depression, anxiety, PTSD, delusions, and dementia. Questions and concerns answered.
--- NOTE | 2018-05-17 13:31 | NUR ---
Rx Attempt made to call in prescriptions for Zoloft, Aricept, Trazodone, and Risperdal to [place] [facility] @ [phone]. Pharmacy is not open on weekends and there is no voicemail service available. This RN to notify oncoming staff of need for prescriptions by A.M. shift 05/18/18.
[2018-05-17 13:32] VITALS: BP 117/65
--- NOTE | 2018-05-17 13:32 | NUR ---
Off unit Pt ambulated off unit with use of cane, alongside Angela Flores CNA and pt's sponsee, Jovan, down to private vehicle. No distress noted.
[2018-05-17] MEDS ORDERED: RISP0.2518 PO (14:09)
[2018-05-17] MEDS ORDERED: DONE5TAB53 PO (14:09)
--- NOTE | 2018-05-17 14:55 | NUR ---
Notification Contacted pt @ [phone] to notify of meds being filled on 05/18/18. No answer, left voicemail with callback number.
--- NOTE | 2018-05-17 20:48 | DSH ---
DATE OF DISCHARGE: 05/17/2018 DATE OF ADMISSION: 05/05/2018 DATE OF DISCHARGE: 05/17/2018 HOSPITAL COURSE: The patient is a 68-year-old male who is a voluntary admission to the [facility]. The patient is a . The patient was living in [facility]. The patient was having problems with his mood and was feeling suicidal before coming into the facility. He is also having problems with anger and irritability. The patient was stabilized on the following psychotropic medications: Clonidine 0.1 mg p.o. at bedtime, Aricept 5 mg p.o. at bedtime, Risperdal 0.5 mg p.o. b.i.d., Zoloft 100 mg p.o. daily, trazodone 50 mg p.o. at bedtime. The patient tolerated all the medications fine. He showed improvement in his mood. He was not suicidal or homicidal, when he was discharged. He had no cravings to use alcohol or illicit drugs. He is not having psychotic or manic symptoms. He had a manageable anxiety level. He planned on going to live with family in [place] after he leaves [facility] at the end of this month. He was being brought back to [facility] until he can transition over to live with his family in [place]. He is to continue his current psychotropic medications. He is not suicidal or homicidal on discharge. DISCHARGE DIAGNOSES: Major depressive disorder, recurrent, severe with psychotic features; generalized anxiety disorder; posttraumatic stress disorder; history of polysubstance dependence. DISCHARGE PLAN: 1. The patient is being discharged in stable condition back to [facility]. He will followup with outpatient psychiatry for psychotropic medications. 2. The patient plans to move to ____ [place] to live with his family in the near future. Dhaval Cortés IV MD DR: /ayo JOB# [id number]
== END 2018-05-17 13:32 | disposition home or self-care (01) | DRG 885 ==
LOC: GP 21:06 → EEVIPCON 21:06 → GP 05-08 17:31
PROVIDERS: ADMIT Psychiatry & Neurology Psychiatry; ATTEND Psychiatry & Neurology Psychiatry
DX: F33.3 Major depressive disorder, recurrent, severe with psychotic symptoms (principal); F02.81 Dementia in other diseases classified elsewhere, unspecified severity, with behavioral disturbance; I50.32 Chronic diastolic (congestive) heart failure; R45.851 Suicidal ideations; G30.9 Alzheimer's disease, unspecified; F43.10 Post-traumatic stress disorder, unspecified; F41.1 Generalized anxiety disorder; G89.29 Other chronic pain; I11.0 Hypertensive heart disease with heart failure; D69.6 Thrombocytopenia, unspecified; E11.9 Type 2 diabetes mellitus without complications; E78.5 Hyperlipidemia, unspecified; Z91.5 Personal history of self-harm; Z88.0 Allergy status to penicillin; Z88.7 Allergy status to serum and vaccine; Z88.8 Allergy status to other drugs, medicaments and biological substances; Z81.8 Family history of other mental and behavioral disorders; Z91.81 History of falling; Z82.0 Family history of epilepsy and other diseases of the nervous system
CPT/HCPCS: 71046; 82948; 97150; 97165; J1815; J3490; G8987; G8988